=== PATIENT | female | born 1985 | race Caucasian/White ===

== ENCOUNTER 2022-07-03 07:53 | Emergency (ER) | payer MEDICAID ==
[~2022-07-03] VITALS: Ht 177.8 cm; Wt 80.0 kg
[2022-07-03] MEDS ORDERED: ONDANSETRON HCL 4MG/2ML INJ IV STA (08:09)
[2022-07-03] MEDS ORDERED: FAMOTIDINE 20MG/2ML VIAL IV STA (08:09)
[2022-07-03] MEDS ORDERED: SODIUM CHLORIDE 0.9% 1,000 ML IV ONE ×2 (08:15→09:45)
[2022-07-03 08:57] LABS: CHLORIDE 99 mEq/L (98-107)
[2022-07-03 08:59] LABS: HEMATOCRIT. 47.2 % (36.0-48.0); HEMOGLOBIN. 16.6 g/dL (12.0-16.0); MEAN CORPUSCULAR HEMOGLOBIN 32.3 pg (28.0-32.0); MEAN CORPUSCULAR VOLUME 91.7 fL (81.0-99.0); MEAN PLATELET VOLUME 8.7 fl (7.4-10.4); PLATELET 242 x1000/uL (130-400); RED BLOOD CELL COUNT 5.15 mill/uL (4.2-5.4); RED CELL DISTRIBUTION WIDTH 14.3 % (11.6-14.6)
[2022-07-03 09:54] LABS: HCG SCREEN NEGATIVE
[2022-07-03 10:14] LABS: PLATELET ESTIMATE NORMAL
[2022-07-03] MEDS ORDERED: IOHEXOL-300 100 ML BOTTLE ONE (11:17)
[2022-07-03] MEDS ORDERED: MORPHINE SULFATE 2 MG/ML CPJ (NOT FOR IM USE) IV NR (12:00)
[2022-07-03 13:38] LABS: CLARITY URINE CLEAR (CLEAR); COLOR URINE YELLOW (YELLOW); KETONES URINE 4+ (NEGATIVE); LEUKOCYTE ESTERASE URINE NEGATIVE (NEGATIVE); NITRITE URINE NEGATIVE (NEGATIVE); OCCULT BLOOD URINE NEGATIVE (NEGATIVE); PROTEIN URINE 1+ (NEGATIVE); SPECIFIC GRAVITY URINE 1.068 (1.005-1.030); UROBILINOGEN URINE 0.2 E.U./dL (0.2-1.0)
[2022-07-03] MEDS ORDERED: ONDANSETRON HCL 4MG/2ML INJ IV ONE (15:30)
[2022-07-03 15:50] VITALS: BP 118/76
== END 2022-07-03 16:16 | disposition short-term general hospital (02) ==
LOC: ER 08:07 → CMPBEDREQ 07-04 00:07
DX: K85.90 Acute pancreatitis without necrosis or infection, unspecified (principal); E86.0 Dehydration; E87.2 Acidosis; Z88.0 Allergy status to penicillin; Z20.822 Contact with and (suspected) exposure to COVID-19
CPT/HCPCS: 36415; 74177; 76705; 80053; 81003; 83690; 84478; 84703; 85025; 87426; 96361; 96374; 96375; 96376; 99291; C9803; J2270; J2405; J3490; J7030; Q9967